=== PATIENT | male | born 1990 | race Caucasian/White ===

== ENCOUNTER 2021-06-23 15:43 | Emergency (ER) | payer OTHER ==
[~2021-06-23] VITALS: Ht 167.6 cm; Wt 104.3 kg
--- NOTE | 2021-06-23 15:44 | NUR ---
[facility] TO ER BED 5
[2021-06-23 15:49] VITALS: BP 120/76
--- NOTE | 2021-06-23 16:04 | NUR ---
31 Y MALE BIBA FROM HOME, PATIENT STATES HE WAS PLANNING TO DRIVE TO ER, BUT BEGAN FEELING DIZZY AND LIGHTHEADED, FELT THOUGH HE WAS GOING TO PASS OUT. PATIENT HAS BEEN SEEN BY MD AT [facility] FOR POTENTIAL CARDIAC ISSUES, PATIENT JUST DISCOVERED HE HAS PROBLEMS WITH HIS THYROID WELL. PT ALSO STATED HE HAS TIME OF BLURRED VISION AND FATIGUE WITH A RANDOM ONSET THAT HAS BEEN OCCURING FOR THE PAST 3 MONTHS. UPON ASSESSMENT BREATH SOUNDS CLEAR BILATERALLY, S1/S2 HEARD, AND PERRLA INTACT. 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 FIB PER HIS MD" PMH: POTENINAL CARDIAC AND THYROID ISSUES ALLERGIES: PENICILLIN, CIPRO
--- NOTE | 2021-06-23 16:12 | NUR ---
MED STUDENT BEDSIDE EVALUATING PT
[2021-06-23] MEDS ORDERED: NACL 0.9% 1,000 ML IV ONE (16:30)
--- NOTE | 2021-06-23 16:40 | NUR ---
DR. EASTON BEDSIDE EVALUATING PT
--- NOTE | 2021-06-23 16:47 | NUR ---
CT CONSENT SIGNED AND OBTAINED BEDSIDE. CONSENT PLACED INTO PT CHART
--- NOTE | 2021-06-23 16:48 | NUR ---
20 IV ESTABLISHED IN R AC. BLOOD WORK COLLECTED FROM IV AND HANDED TO UPWARD BOUND DIRECTOR [facility]
[2021-06-23 16:55] LABS: BASOPHILS # (AUTO) 0.1 K/uL (0.00-0.22); BASOPHILS % (AUTO) 0.6 % (0.0-2.0); EOSINOPHILS # (AUTO) 0.1 K/uL (0-0.4); HEMATOCRIT 42.5 % (36-52); HEMOGLOBIN 14.5 g/dL (12.0-18.0); LYMPHOCYTES # (AUTO) 2.3 K/uL (2.0-11.5); LYMPHOCYTES % (AUTO) 26.2 % (20.5-51.1); MEAN CORPUSCULAR HEMOGLOBIN 30 pg (27-31); MEAN CORPUSCULAR HGB CONC 34 g/dL (33-37); MEAN CORPUSCULAR VOLUME 87.5 fL (80-94); MONOCYTES # (AUTO) 0.6 K/uL (0.8-1.0); MONOCYTES % (AUTO) 7.1 % (1.7-9.3); NEUTROPHILS # (AUTO) 5.7 K/uL (1.8-7.7); NEUTROPHILS % (AUTO) 65.1 % (42.2-75.2); PLATELET COUNT (AUTO) 231 K/uL (140-450); RED BLOOD CELL COUNT(AUTO) 4.86 MIL/uL (4.20-6.10); RED CELL DISTRIBUTION WIDTH 12.6 % (11.6-13.7); WHITE BLOOD COUNT (AUTO) 8.7 K/uL (4.8-10.8)
--- NOTE | 2021-06-23 17:03 | NUR ---
XRAY BEDSIDE WITH PATIENT
[2021-06-23 17:19] LABS: ALBUMIN 4.5 g/dL (3.4-5.0); ANION GAP 12.3 (8-16); CARBON DIOXIDE 27.6 mmol/L (21-32); CREATININE 0.9 mg/dL (0.6-1.3); FREE T4 (FREE THYROXINE) 0.94 ng/dL (0.76-1.46); POTASSIUM 3.9 mmol/L (3.5-5.1); THYROID STIMULATING HORMONE 3.62 uIU/mL (0.34-3.74); TOTAL BILIRUBIN 0.4 mg/dL (0.0-1.0)
--- NOTE | 2021-06-23 17:28 | NUR ---
pt taken to CT via w/c
[2021-06-23 18:33] LABS: BARBITURATE, URINE NEGATIVE ng/ml (NEG <=200); BENZODIAZEPINE, URINE NEGATIVE ng/mL (NEG <=200); CANNABINOID, URINE NEGATIVE ng/mL (NEG <=50); COCAINE, URINE NEGATIVE ng/mL (NEG <=300); OPIATE, URINE NEGATIVE ng/mL (NEG <=2000); PHENCYCLIDINE SCREEN,URINE NEGATIVE ng/mL (NEG <=25)
--- NOTE | 2021-06-23 19:23 | NUR ---
Pt report given to SARAI STEWART. Transfer of care at this time.
--- NOTE | 2021-06-23 19:24 | NUR ---
RECEIVED REPORT FROM MARELY MOON, TRANSFER OF CARE AT THIS TIME
--- NOTE | 2021-06-23 19:43 | NUR ---
Patient discharged with v/s stable. Written and verbal after care instructions ABOUT PALPITATIONS given and explained. Patient verbalized understanding. Ambulatory with steady gait. All questions addressed prior to discharge. Advised to follow up with PMD.
[2021-06-23 19:45] VITALS: BP 137/75
== END 2021-06-23 19:43 | disposition home or self-care (01) ==
LOC: MED 15:43
DX: R00.2 Palpitations (principal); R42 Dizziness and giddiness; R51.9 Headache, unspecified; Z88.0 Allergy status to penicillin; Z88.1 Allergy status to other antibiotic agents
CPT/HCPCS: 36415; 70450; 70496; 70498; 71045; 80053; 80305; 84439; 84443; 84484; 85025; 93005; 96360; 99285; J7030; Q0092; Q9967

== ENCOUNTER 2021-07-08 06:03 | Day surgery (SDC) | payer OTHER, SELFPAY ==
[~2021-07-08] VITALS: Ht 193 cm; Wt 102.1 kg
[2021-07-08] MEDS ORDERED: fentaNYL citrate 0.05 MG/ML VIAL ONE (07:49)
[2021-07-08] MEDS ORDERED: MIDAZOLAM 5 MG/5 ML VIAL ONE ×2 (07:49→07:51)
[2021-07-08] MEDS ORDERED: diphenhydrAMINE 50 MG/ML VIAL ONE (07:50)
[2021-07-08] MEDS ORDERED: LIDOCAINE 2% 100 MG/5 ML UJET TP ONE ×2 (07:50→08:25)
== END 2021-07-08 09:23 | disposition home or self-care (01) ==
LOC: MDS 06:03 → MMU 06:06 → MDS 09:23
PROVIDERS: ATTEND Internal Medicine Gastroenterology
DX: R19.4 Change in bowel habit (principal); K64.8 Other hemorrhoids; K21.9 Gastro-esophageal reflux disease without esophagitis; K22.70 Barrett's esophagus without dysplasia; E78.00 Pure hypercholesterolemia, unspecified; Z80.0 Family history of malignant neoplasm of digestive organs; Z87.891 Personal history of nicotine dependence; Z88.0 Allergy status to penicillin; Z88.1 Allergy status to other antibiotic agents
CPT/HCPCS: 43239; 45330; 87426; J2250; 88305; J1200; J3010

== ENCOUNTER 2021-09-08 18:39 | Emergency (ER) | payer OTHER, SELFPAY ==
[~2021-09-08] VITALS: Ht 185.4 cm; Wt 108.9 kg
[2021-09-08 18:53] VITALS: BP 149/71
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
[2021-09-08 20:13] LABS: BASOPHILS # (AUTO) 0.1 K/uL (0.00-0.22); BASOPHILS % (AUTO) 0.8 % (0.0-2.0); EOSINOPHILS # (AUTO) 0.1 K/uL (0-0.4); EOSINOPHILS % (AUTO) 1.7 % (0.0-4.0); HEMATOCRIT 41.4 % (36-52); HEMOGLOBIN 14.3 g/dL (12.0-18.0); LYMPHOCYTES # (AUTO) 2.8 K/uL (2.0-11.5); MEAN CORPUSCULAR HEMOGLOBIN 30 pg (27-31); MEAN CORPUSCULAR HGB CONC 35 g/dL (33-37); MEAN CORPUSCULAR VOLUME 87.9 fL (80-94); MONOCYTES # (AUTO) 0.5 K/uL (0.8-1.0); MONOCYTES % (AUTO) 7.5 % (1.7-9.3); NEUTROPHILS # (AUTO) 3.4 K/uL (1.8-7.7); PLATELET COUNT (AUTO) 231 K/uL (140-450); RED BLOOD CELL COUNT(AUTO) 4.71 MIL/uL (4.20-6.10); RED CELL DISTRIBUTION WIDTH 12.4 % (11.6-13.7); WHITE BLOOD COUNT (AUTO) 6.9 K/uL (4.8-10.8)
[2021-09-08 20:41] LABS: ALBUMIN 4.3 g/dL (3.4-5.0); ANION GAP 11.8 (8-16); CARBON DIOXIDE 26.8 mmol/L (21-32); CREATININE 0.8 mg/dL (0.6-1.3); MAGNESIUM 2.1 mg/dL (1.8-2.4); PHOSPHORUS 3.1 mg/dL (2.5-4.9); POTASSIUM 3.6 mmol/L (3.5-5.1); TOTAL BILIRUBIN 0.3 mg/dL (0.0-1.0)
--- NOTE | 2021-09-08 21:06 | NUR ---
PT IS SITTING UP IN BED USING PHONE. ALL NEEDS MET AT THIS TIME. VSS. PT IS IN STABLE CONDITION. BED LOCKED IN LOWEST POSITION, SIDE RAILS X2 FOR SAFETY.
[2021-09-08 21:33] VITALS: BP 149/78
--- NOTE | 2021-09-08 21:33 | NUR ---
Patient discharged with v/s stable. Written and verbal after care instructions given and explained. Patient verbalized understanding. Ambulatory with steady gait. All questions addressed prior to discharge. Advised to follow up with PMD.
== END 2021-09-08 21:33 | disposition home or self-care (01) ==
LOC: MED 18:39
DX: R42 Dizziness and giddiness (principal); M25.512 Pain in left shoulder; I10 Essential (primary) hypertension; Z88.0 Allergy status to penicillin; Z88.1 Allergy status to other antibiotic agents
CPT/HCPCS: 36415; 71045; 80053; 83735; 84100; 84484; 85025; 93005; 99285; Q0092

== ENCOUNTER 2021-09-16 18:24 | Emergency (ER) | payer OTHER ==
[~2021-09-16] VITALS: Ht 198.1 cm; Wt 108.9 kg
[2021-09-16 20:20] VITALS: BP 152/91
--- NOTE | 2021-09-16 20:20 | NUR ---
SEEN AND EXAMINED BY JOHN
[2021-09-16 20:29] VITALS: BP 152/91
== END 2021-09-16 20:29 | disposition home or self-care (01) ==
LOC: MED 18:24
DX: I10 Essential (primary) hypertension (principal); R20.0 Anesthesia of skin; R53.1 Weakness; Z88.0 Allergy status to penicillin; Z88.1 Allergy status to other antibiotic agents
CPT/HCPCS: 99281

== ENCOUNTER 2022-01-09 15:59 | Emergency (ER) | payer SELFPAY ==
[~2022-01-09] VITALS: Ht 200.7 cm; Wt 111.1 kg
[2022-01-09 16:02] VITALS: BP 132/77
[2022-01-09 16:48] LABS: BASOPHILS # (AUTO) 0.1 K/uL (0.00-0.22); BASOPHILS % (AUTO) 0.8 % (0.0-2.0); EOSINOPHILS # (AUTO) 0.1 K/uL (0-0.4); EOSINOPHILS % (AUTO) 0.8 % (0.0-4.0); HEMATOCRIT 41.1 % (36-52); LYMPHOCYTES # (AUTO) 2.2 K/uL (2.0-11.5); LYMPHOCYTES % (AUTO) 30.7 % (20.5-51.1); MEAN CORPUSCULAR HEMOGLOBIN 30 pg (27-31); MEAN CORPUSCULAR HGB CONC 34 g/dL (33-37); MONOCYTES # (AUTO) 0.5 K/uL (0.8-1.0); MONOCYTES % (AUTO) 7.3 % (1.7-9.3); NEUTROPHILS # (AUTO) 4.4 K/uL (1.8-7.7); NEUTROPHILS % (AUTO) 60.4 % (42.2-75.2); PLATELET COUNT (AUTO) 224 K/uL (140-450); RED BLOOD CELL COUNT(AUTO) 4.72 MIL/uL (4.20-6.10); RED CELL DISTRIBUTION WIDTH 13.4 % (11.6-13.7); WHITE BLOOD COUNT (AUTO) 7.3 K/uL (4.8-10.8)
[2022-01-09 17:03] LABS: ALBUMIN 4.3 g/dL (3.4-5.0); ANION GAP 11.8 (8-16); MAGNESIUM 2.2 mg/dL (1.8-2.4); POTASSIUM 3.8 mmol/L (3.5-5.1); TOTAL BILIRUBIN 0.4 mg/dL (0.0-1.0)
[2022-01-09 17:51] VITALS: BP 121/71
== END 2022-01-09 18:16 | disposition home or self-care (01) ==
LOC: MED 15:59
DX: R07.9 Chest pain, unspecified (principal); Z88.0 Allergy status to penicillin; Z88.1 Allergy status to other antibiotic agents
CPT/HCPCS: 36415; 71045; 80053; 83735; 85025; 93005; 99285; Q0092

== ENCOUNTER 2022-05-18 20:33 | Emergency (ER) | payer BC ==
[~2022-05-18] VITALS: Ht 195.6 cm; Wt 115.7 kg
[2022-05-18 20:45] VITALS: BP 142/96
[2022-05-18 22:26] LABS: BASOPHILS # (AUTO) 0.1 K/uL (0.00-0.22); BASOPHILS % (AUTO) 0.9 % (0.0-2.0); EOSINOPHILS # (AUTO) 0.1 K/uL (0-0.4); EOSINOPHILS % (AUTO) 1.5 % (0.0-4.0); HEMATOCRIT 42.8 % (36-52); HEMOGLOBIN 14.8 g/dL (12.0-18.0); LYMPHOCYTES # (AUTO) 3.7 K/uL (2.0-11.5); LYMPHOCYTES % (AUTO) 44.8 % (20.5-51.1); MEAN CORPUSCULAR HEMOGLOBIN 30 pg (27-31); MEAN CORPUSCULAR HGB CONC 35 g/dL (33-37); MEAN CORPUSCULAR VOLUME 87.5 fL (80-94); MONOCYTES # (AUTO) 0.7 K/uL (0.8-1.0); NEUTROPHILS # (AUTO) 3.6 K/uL (1.8-7.7); NEUTROPHILS % (AUTO) 43.8 % (42.2-75.2); PLATELET COUNT (AUTO) 224 K/uL (140-450); RED BLOOD CELL COUNT(AUTO) 4.89 MIL/uL (4.20-6.10); RED CELL DISTRIBUTION WIDTH 12.6 % (11.6-13.7); WHITE BLOOD COUNT (AUTO) 8.2 K/uL (4.8-10.8)
[2022-05-18 22:44] LABS: ANION GAP 12.1 (8-16); CARBON DIOXIDE 29.8 mmol/L (21-32); CREATININE 1.1 mg/dL (0.6-1.3); POTASSIUM 3.9 mmol/L (3.5-5.1)
[2022-05-18] MEDS ORDERED: MECL-303 PO (23:16)
[2022-05-19 00:07] VITALS: BP 132/82
== END 2022-05-19 00:07 | disposition home or self-care (01) ==
LOC: MED 20:33
DX: R55 Syncope and collapse (principal); R42 Dizziness and giddiness; R53.1 Weakness; Z88.0 Allergy status to penicillin; Z88.1 Allergy status to other antibiotic agents; Z79.899 Other long term (current) drug therapy
CPT/HCPCS: 36415; 80048; 83735; 85025; 93005; 99284

== ENCOUNTER 2023-12-30 04:45 | Emergency (ER) | payer SELFPAY ==
[~2023-12-30] VITALS: Ht 195.6 cm; Wt 113.4 kg
[~2023-12-30 04:45] MED LIST: MECL-303 PO
[2023-12-30 04:48] VITALS: BP 150/90; PULSE 62; RESP 16; TEMP 97.8; O2SAT 97
[2023-12-30 06:29] LABS: BASOPHILS % (AUTO) 0.5 % (0.0-2.0); EOSINOPHILS # (AUTO) 0.1 K/uL (0-0.4); HEMATOCRIT 44.7 % (36-52); HEMOGLOBIN 15.7 g/dL (12.0-18.0); LYMPHOCYTES # (AUTO) 2.2 K/uL (2.0-11.5); LYMPHOCYTES % (AUTO) 29.1 % (20.5-51.1); MEAN CORPUSCULAR HEMOGLOBIN 30 pg (27-31); MEAN CORPUSCULAR HGB CONC 35 g/dL (33-37); MONOCYTES # (AUTO) 0.7 K/uL (0.8-1.0); MONOCYTES % (AUTO) 9.3 % (1.7-9.3); NEUTROPHILS # (AUTO) 4.6 K/uL (1.8-7.7); NEUTROPHILS % (AUTO) 60.1 % (42.2-75.2); PLATELET COUNT (AUTO) 229 K/uL (140-450); RED CELL DISTRIBUTION WIDTH 12.8 % (11.6-13.7); WHITE BLOOD COUNT (AUTO) 7.6 K/uL (4.8-10.8)
[2023-12-30 06:41] LABS: ANION GAP 13.4 (8-16); CALCIUM 9.2 mg/dL (8.5-10.1); CARBON DIOXIDE 28.3 mmol/L (21-32); POTASSIUM 3.7 mmol/L (3.5-5.1)
[2023-12-30 06:45] LABS: ALBUMIN 4.5 g/dL (3.4-5.0); BILIRUBIN,DIRECT 0.1 mg/dL (0.0-0.3); TOTAL BILIRUBIN 0.8 mg/dL (0.0-1.0)
[2023-12-30] MEDS: KETOROLAC 30 MG/ML VIAL IM ONE (06:48)
[2023-12-30 07:17] LABS: APPEARANCE,URINE CLEAR (CLEAR); BILIRUBIN,URINE NEGATIVE (NEGATIVE); BLOOD, URINE NEGATIVE (NEGATIVE); COLOR,URINE YELLOW (YELLOW); LEUKOCYTE ESTERASE ,URINE NEGATIVE (NEGATIVE); NITRITE, URINE NEGATIVE (NEGATIVE); PROTEIN,URINE NEGATIVE (NEGATIVE); UGLUCOSE NEGATIVE (NEGATIVE); UROBILINOGEN,URINE 0.2 EU/dL (0.2 - 1)
[2023-12-30] MEDS ORDERED: ACETAMINOPHEN EXTRA STRENGTH 500 MG TAB ONE (07:50)
[2023-12-30] MEDS ORDERED: DOCU-299 PO (07:53)
[2023-12-30] MEDS ORDERED: MIRABULK PO (07:53)
[2023-12-30] MEDS ORDERED: BEN10 PO (07:54)
[2023-12-30] MEDS: ACETAMINOPHEN EXTRA STRENGTH 500 MG TAB PO ONE (07:54)
[2023-12-30 08:05] VITALS: BP 152/97; PULSE 50; RESP 15; TEMP 97.5; O2SAT 98
== END 2023-12-30 08:05 | disposition home or self-care (01) ==
LOC: MED 04:45
DX: K56.7 Ileus, unspecified (principal); Z79.899 Other long term (current) drug therapy; Z87.891 Personal history of nicotine dependence; Z88.0 Allergy status to penicillin; Z88.1 Allergy status to other antibiotic agents
CPT/HCPCS: 36415; 74176; 80048; 80076; 81003; 83690; 85025; 96372; 99285; J1885